=== PATIENT | female | born 1945 | race Caucasian/White ===

== ENCOUNTER 2017-05-11 10:12 | Inpatient (IN) | payer MEDICARE ==
[~2017-05-11 10:12] MED LIST: Midazolam 1 MG/ML 2 ML SDV ONE; Propofol 200 MG/20 ML SDV ONE; SODIUM CHLORIDE 0.9% IV SCH; TRANEXAMIC ACID IV SCH; fentaNYL 100 MCG/2 ML SDV ONE
[2017-05-11] MEDS ORDERED: Clindamycin Phosphate 900 MG in Sodium Chloride 0.9% 100 ML IV ONE (11:00)
[2017-05-11] MEDS ORDERED: Gabapentin 300 MG Cap PO ONE (11:00)
[2017-05-11] MEDS ORDERED: Lactated Ringers 1,000 ML IV SCH (11:00)
[2017-05-11] MEDS ORDERED: Scopolamine 1.5 MG Transdermal Patch TOP SCH (11:00)
[2017-05-11] MEDS ORDERED: Povidone-Iodine 10% Soln 118.25 ML Bottle ONE (11:32)
[2017-05-11] MEDS ORDERED: Gentamicin 40 MG/ML 2 ML Vial ONE (11:32)
[2017-05-11] MEDS ORDERED: Ketamine 500 MG/5 ML MDV IV ONE (12:15)
[2017-05-11] MEDS ORDERED: SODIUM CHLORIDE 0.9% IV SCH (12:15)
[2017-05-11] MEDS ORDERED: TRANEXAMIC ACID IV SCH (12:15)
[2017-05-11] MEDS ORDERED: Ropivacaine 49.25 ML, Ketorolac 30 MG, EPINEPHrine 0.5 MG, cloNIDine 80 MCG, Sodium Chl... INJECT ONE ×5 (12:15)
[2017-05-11] MEDS: Tranexamic Acid 600 MG in Sodium Chloride 0.9% 50 ML IV SCH ×2 (13:00→14:29)
[2017-05-11] MEDS ORDERED: Glycopyrrolate 0.2 MG/ML 5 ML MDV ONE (13:09)
[2017-05-11] MEDS ORDERED: Dexamethasone 4 MG/ML SDV ONE (13:09)
[2017-05-11] MEDS ORDERED: Rocuronium 50 MG/5 ML Vial ONE (13:09)
[2017-05-11] MEDS ORDERED: Propofol 200 MG/20 ML SDV ONE (13:09)
[2017-05-11] MEDS ORDERED: Neostigmine Methylsulfate 1 MG/ML 5 ML Syringe ONE (13:09)
[2017-05-11] MEDS ORDERED: Ondansetron 4 MG/2 ML SDV ONE (13:09)
[2017-05-11] MEDS ORDERED: fentaNYL 250 MCG/5 ML SDV ONE (13:10)
[2017-05-11] MEDS ORDERED: Lactated Ringers 1,000 ML ONE (13:44)
[2017-05-11] MEDS ORDERED: diphenhydrAMINE 50 MG/ML SDV IVPUSH PRN (14:25)
[2017-05-11] MEDS ORDERED: Morphine 2 MG/ML Syringe IVPUSH PRN (14:25)
[2017-05-11] MEDS ORDERED: Zolpidem 5 MG Tab PO PRN (14:25)
[2017-05-11] MEDS ORDERED: Ondansetron 4 MG/2 ML SDV IVPUSH PRN (14:25)
[2017-05-11] MEDS ORDERED: Bisacodyl 5 MG Tab PO PRN (14:25)
[2017-05-11] MEDS ORDERED: Ketorolac 30 MG/ML SDV IVPUSH PRN (14:25)
[2017-05-11] MEDS ORDERED: traMADol 50 MG Tab PO PRN (14:25)
[2017-05-11] MEDS ORDERED: Sennosides 8.6 MG Tab PO PRN (14:25)
[2017-05-11] MEDS ORDERED: Magnesium Hydroxide 400 MG/5 ML Susp 30 ML Cup PO PRN (14:25)
[2017-05-11] MEDS ORDERED: Naloxone 0.4 MG/ML SDV IVPUSH PRN (14:25)
[2017-05-11] MEDS ORDERED: Aluminum Hydroxide/Magnesium Hydroxide/Simethicone Susp 30 ML Cup PO PRN (14:25)
--- NOTE | 2017-05-11 14:38 | CR ---
Knee 1V or 2V Lt INDICATION: LEFT KNEE ARTHROPLASTY FINDINGS: Postoperative changes medial compartment hemiarthroplasty. Negative for postoperative purpo ses.
[2017-05-11] MEDS ORDERED: Diazepam 5 MG Tab PO PRN (15:22)
--- NOTE | 2017-05-11 20:24 | OR ---
DATE OF PROCEDURE: 05/11/2017 PREOPERATIVE DIAGNOSIS: Left knee primary osteoarthritis. POSTOPERATIVE DIAGNOSIS: Left knee primary osteoarthritis. PROCEDURE: Left knee medial compartmental arthroplasty. BEVEL GEAR GENERATOR OPERATOR: Eduarda Tejeda NP. Physician medicine assistant, Eduarda Tejeda NP, played an essential role in assisting in this case, helping to position the patient, retract structures as needed, as well as suturing and cutting sutures as indicated. Her presence improved patient's safety and decreased operative time. ANESTHESIA: Spinal anesthesia plus conscious sedation. FLUID: Lactated Ringer solution. ESTIMATED BLOOD LOSS: 100 mL. COMPLICATIONS: None. SPECIMENS: None. DISCHARGE DISPOSITION: Stable to PACU. HISTORY AND INDICATIONS FOR THE PROCEDURE: The patient was seen preoperatively in the clinic. She had failed nonoperative treatment. Preoperative imaging confirmed the above- mentioned diagnosis. Risks and benefits of the procedure were explained to the patient. DETAILS OF PROCEDURE: The patient was seen preoperatively in the preop holding area where the operative site was marked. She was brought to the operative suite by the anesthesia staff where spinal anesthesia was administered plus conscious sedation. The right lower extremity was in a stirrup. The left lower extremity had a well padded tourniquet placed and was in a U-shaped thigh hooker with extra padding. All extremities were found to be well padded. The left lower extremity was then prepped and draped in a sterile manner. Time-out was called identifying the correct patient, the correct procedure, the correct site, and the antibiotics had begun within appropriate period of time. The left lower extremity was then exsanguinated. Tourniquet was raised to 300 mmHg for 40 minutes, and then let down during cementing. A slightly oblique medial longitudinal incision was made just medial to the patella down to the tibial tubercle and carried down to the deep fascia. Bleeding during the case was controlled with Bovie electrocautery and an Aquamantys unit. I then did a medial parapatellar arthrotomy. I then removed the infrapatellar fat pad, and then exposed the medial proximal tibia with Bovie electrocautery. We then did a medial meniscectomy. I removed osteophytes in the box with an osteotome. I removed osteophytes off the distal femur using rongeurs. We then inserted a small spoon, which provided a good contour. I then used my tibial guide and attached this to the spoon. This was in line with the second metatarsal. I then pinned this in place, and then made my vertical side cut just medial to the insertion of the posterior cruciate ligament at the medial spine. I then made my horizontal cut. This measured a size B. We then removed more of the medial meniscus. We then drilled 1 cm anterior to an anterior-posterior line in line with the medial femoral condylar wall. I then used an awl, and then placed my intramedullary guide kerrie in this. I then used my femoral guide after marking the medial third of the condyle, and then linked this to the kerrie. After this had been accomplished, we then drilled 2 guide holes into the distal femur. I then inserted my distal cutting guide, and then did my distal femoral cut. After this had been accomplished, I inserted my 0 spigot, and then reamed the distal femur. After this had been accomplished, we inserted our femoral trial and tibial trial. This measured 3 in extension and I was able to get a #1 plate in extension, therefore, I put in another #2 spigot, and then reamed. Once I reinserted my components and inserted #3 trial, this provided excellent stability in flexion and extension with equal gapping. I then removed all my components. I then placed my posterior femur guide on, and then removed some small posterior osteophytes, and then removed excess bone on the distal anterior tibia. We then removed that component, and then using a spike, placed our tibial base plate with the , and then using a toothed saw, removed bone for the fin. I then removed the bone for the fin using a small hooked instrument. We then reinserted all of our components and inserted a 3 trial. This provided good range of motion with excellent stability in mid flexion, extension and flexion. We then removed all those components, and then copiously irrigated with saline. We then cemented our components in place and inserted a trial #4 in 50 degrees of extension while letting the cement harden. After the cement hardened, we looked for any excess cement, which was removed, copiously irrigated with saline. I then inserted a number #4 trial, which provided excellent range of motion and stability. We then inserted the #4 final 4-mm polyethylene implant. We then copiously irrigated with saline, and then closed with two #5 Ethibond followed by #1 STRATAFIX, followed by 3-0 STRATAFIX, followed by skin alex, followed by sterile dressing. The patient was then allowed to be transferred to the hospital bed and taken to the PACU in stable condition. Hernando Brunson DO /[id number]
[2017-05-11] MEDS ORDERED: Metoprolol Succinate 25 MG Tab.ER PO SCH (21:00)
[2017-05-11] MEDS: Docusate Sodium 100 MG Cap PO SCH (21:22)
[2017-05-11] MEDS: Metoprolol Tartrate 25 MG Tab PO SCH (21:22)
[2017-05-11] MEDS: Acetaminophen/oxyCODONE 325-5 MG Tab PO PRN (21:44)
[2017-05-12] MEDS ORDERED: Acetaminophen/Caffeine 500-65 MG Tab PO PRN (03:17)
[2017-05-12] MEDS: Metoprolol Tartrate 25 MG Tab PO SCH (07:59)
[2017-05-12 08:00] VITALS: BP 129/74
[2017-05-12] MEDS: Docusate Sodium 100 MG Cap PO SCH (08:00)
--- NOTE | 2017-05-12 08:10 | PCM.DCSUM1 ---
Discharge Summary - Discharge Data Discharge Date: 05/12/17 Discharge Disposition: Home, Self-Care 01 Condition: Good - Patient Summary/Data Operative Procedure(s) Performed: Left knee medial UKA Consults: Consultations 05/11/17 14:25 OT Evaluation and Treatment [CONS] Routine Please Evaluate and Treat. OT Reason for Consult: Strengthening This query below is only for informational purposes and is not editable. PT Evaluation and Treatment [CONS] Routine Please Evaluate and Treat. PT Reason for Consult: Strengthening This query below is only for informational purposes and is not editable. - Patient Instructions Diet: Usual Diet as Tolerated Activity: Apply Ice, As Tolerated Driving: Do Not Drive Showering/Bathing: May Shower, No Tub Bathing/Swimming Wound/Incision Care: Keep Operative Site/Wound Site Clean and Dry, Change Dressing Daily Notify Provider of: Fever, Increased Pain, Swelling and Redness, Drainage, Nausea and/or Vomiting - Discharge Plan Prescriptions/Med Rec: Acetaminophen/oxyCODONE [Percocet 325-5 MG] 1 tab PO Q6HR PRN #90 tablet PRN Reason: Pain Acetaminophen/oxyCODONE [Percocet 325-5 MG] 1 tab PO Q6HR PRN #90 tab PRN Reason: Pain Aspirin [Ecotrin] 325 mg PO DAILY #30 tab.ec Home Medications: Home Meds Acetaminophen [Tylenol Arthritis] 2 tab PO DAILY 04/01/16 [History] Aspirin [Halfprin] 2 tab PO BID 04/01/16 [History] Diclofenac Sodium/Misoprostol [Diclofenac-Misoprost 50-0.2 Tb] 1 tab PO BID 03/09 [History] traMADol [Ultram] 50 mg PO BID 04/01/16 [History] Acetaminophen/oxyCODONE [Percocet 325-5 MG] 1 tab PO Q6HR PRN #90 tab 05/11/17 [ Rx] Acetaminophen/oxyCODONE [Percocet 325-5 MG] 1 tab PO Q6HR PRN #90 tablet [Rx] Aspirin [Ecotrin] 325 mg PO DAILY #30 tab.ec 05/11/17 [Rx] Metoprolol Tartrate 25 mg PO BID 05/11/17 [History] Referrals: Eduarda Tejeda NP [Nurse Practitioner] - (3 week recheck) - Review of Systems General: Reports: No Symptoms HEENT: Reports: No Symptoms Pulmonary: Reports: No Symptoms Cardiovascular: Reports: No Symptoms Gastrointestinal: Reports: No Symptoms Genitourinary: Reports: No Symptoms Musculoskeletal: Reports: Leg Pain, Joint Pain Skin: Reports: No Symptoms Neurological: Reports: No Symptoms Psychiatric: Reports: No Symptoms - Patient Data Vitals - Most Recent: Last Vital Signs Temp 99.7 F 05/12/17 08:00 Pulse 80 05/12/17 08:00 Resp 18 05/12/17 08:00 BP 129/74 05/12/17 08:00 Pulse Ox 97 05/12/17 08:00 Weight - Most Recent: 128 lb 9 oz I&O - Last 24 hours: Intake & Output 05/11/17 05/12/17 05/12/17 22:59 06:59 14:59 Intake Total 840 59543 Output Total 275 Balance 565 16417 Lab Results - Last 24 hrs: Laboratory Results - last 24 hr 05/11/17 05/12/17 05/12/17 Range/Units 10:40 05:14 05:14 WBC 12.1 H (4.5-11.0) K/uL RBC 3.88 (3.30-5.50) M/uL Hgb 11.6 L (12.0-15.0) g/dL Hct 35.3 L (36.0-48.0) % MCV 91 (80-98) fL MCH 30 (27-31) pg MCHC 33 (32-36) % Plt Count 241 (150-400) K/uL Neut % (Auto) 71 H (36-66) % Lymph % (Auto) 19 L (24-44) % [place] % (Auto) 10 H (2-6) % Eos % (Auto) 0 L (2-4) % Baso % (Auto) 0 (0-1) % Sodium 134 L (140-148) mmol/L Potassium 4.0 (3.6-5.2) mmol/L Chloride 101 (100-108) mmol/L Carbon Dioxide 28 (21-32) mmol/L Anion Gap 9.0 (5.0-14.0) mmol/L BUN 17 D (7-18) mg/dL Creatinine 0.9 (0.6-1.0) mg/dL Est Cr Clr Drug Dosing 47.06 mL/min Estimated GFR (MDRD) > 60 (>60) Glucose 98 (74-106) mg/dL Calcium 8.2 L (8.5-10.1) mg/dL Total Bilirubin 0.3 (0.2-1.0) mg/dL AST 21 (15-37) U/L ALT 38 (12-78) U/L Alkaline Phosphatase 129 H (46-116) U/L Total Protein 6.0 L (6.4-8.2) g/dL Albumin 2.8 L (3.4-5.0) g/dL Globulin 3.2 (2.3-3.5) g/dL Albumin/Globulin Ratio 0.9 L (1.2-2.2) Blood Type O POSITIVE Gel Antibody Screen Negative Med Orders - Current: Current Medications Acetaminophen/Caffeine (Excedrin Tension Headache) 2 tab PO Q6HR PRN PRN Reason: Headache Al Hydroxide/Mg Hydroxide (Mag-Al Plus) 30 ml PO Q4H PRN PRN Reason: Constipation Aspirin (Ecotrin) 325 mg PO DAILY [facility] Last Admin: 05/12/17 07:59 Dose: 325 mg Bisacodyl (Dulcolax) 10 mg PO DAILY PRN PRN Reason: Constipation Diazepam (Valium.) 5 mg PO Q6H PRN PRN Reason: Spasms Diphenhydramine HCl (Benadryl) 25 mg IVPUSH Q4H PRN PRN Reason: Itching Docusate Sodium (Colace) 100 mg PO BID [facility] Last Admin: 05/12/17 08:00 Dose: 100 mg Lactated Ringer's (Ringers, Lactated) 1,000 mls @ 0 mls/hr IV ASDIRECTED [facility] PRN Reason: KVO Last Admin: 05/11/17 10:38 Dose: 25 mls/hr Ketorolac Tromethamine (Toradol) 15 mg IVPUSH Q8H PRN PRN Reason: Pain Stop: 05/16/17 14:25 Magnesium Hydroxide (Milk Of Magnesia) 30 ml PO BID PRN PRN Reason: Constipation Metoprolol Tartrate (Lopressor) 25 mg PO BID [facility] Last Admin: 05/12/17 07:59 Dose: 25 mg Morphine Sulfate (Morphine) 2 mg IVPUSH Q2H PRN PRN Reason: Pain Naloxone HCl (Narcan) 0.1 mg IVPUSH ONETIME PRN PRN Reason: Oversedation Ondansetron HCl (Zofran) 8 mg IVPUSH Q4H PRN PRN Reason: Nausea/Vomiting Oxycodone/Acetaminophen (Percocet 325-5 Mg) 2 tab PO Q4H PRN PRN Reason: Pain Last Admin: 05/11/17 21:44 Dose: 2 tab Scopolamine (Transderm-Scop) 1.5 mg TOP Q72H [facility]UTHIE Stop: 05/14/17 09:00 Last Admin: 05/11/17 10:35 Dose: 1.5 mg Senna (Senna) 8.6 mg PO BID PRN PRN Reason: Constipation Sodium Chloride (Saline Flush) 10 ml FLUSH DAILY RUTHIE Last Admin: 05/12/17 08:06 Dose: 10 ml Tramadol HCl (Ultram) 100 mg PO Q6H PRN PRN Reason: Pain Last Admin: 05/12/17 05:21 Dose: 100 mg Zolpidem Tartrate (Ambien) 5 mg PO BEDTIME PRN PRN Reason: Sleep Last Admin: 05/11/17 22:32 Dose: 5 mg Discontinued Medications Ropivacaine 49.25 ml/Ketorolac Tromethamine 30 mg/Epinephrine HCl 0.5 mg/ Clonidine HCl 80 mcg/ Sodium Chloride 48.45 ml 0 ml INJECT ONETIME ONE Stop: 05/11/17 12:16 Last Admin: 05/11/17 13:34 Dose: 50 ml Dexamethasone (Dexamethasone) Confirm Administered Dose 4 mg .ROUTE .STK-MED ONE Stop: 05/11/17 13:10 Diazepam (Valium) 5 mg IVPUSH Q6H PRN PRN Reason: Spasms Fentanyl (Sublimaze) Confirm Administered Dose 100 mcg .ROUTE .STK-MED ONE Stop: 05/11/17 09:21 Fentanyl (Sublimaze) Confirm Administered Dose 250 mcg .ROUTE .STK-MED ONE Stop: 05/11/17 13:11 Gabapentin (Neurontin) 300 mg PO ONETIME ONE Stop: 05/11/17 11:01 Last Admin: 05/11/17 10:35 Dose: 300 mg Gentamicin Sulfate (Gentamicin) Confirm Administered Dose 240 mg .ROUTE .STK- MED ONE Stop: 05/11/17 11:33 Last Admin: 05/11/17 13:19 Dose: 240 mg Glycopyrrolate (Robinul) Confirm Administered Dose 1 mg .ROUTE .STK-MED ONE Stop: 05/11/17 13:10 Clindamycin Phosphate 900 mg/ (Sodium Chloride) 106 mls @ 200 mls/hr IV ONETIME ONE Stop: 05/11/17 11:31 Last Admin: 05/11/17 12:30 Dose: 200 mls/hr Tranexamic Acid 630 mg/ Sodium (Chloride) 56.3 mls @ 225.2 mls/hr IV Q2H [facility] Stop: 05/11/17 14:29 Tranexamic Acid 600 mg/ Sodium (Chloride) 56 mls @ 224 mls/hr IV Q2H [facility] Stop: 05/11/17 14:44 Last Admin: 05/11/17 14:29 Dose: 224 mls/hr Lactated Ringer's (Ringers, Lactated) Confirm Administered Dose 1,000 mls @ as directed .ROUTE .STK-MED ONE Stop: 05/11/17 13:45 Clindamycin Phosphate 600 mg/ (Sodium Chloride) 54 mls @ 100 mls/hr IV Q6H [facility] Stop: 05/12/17 06:33 Last Admin: 05/12/17 05:16 Dose: 100 mls/hr Ketamine HCl (Ketalar) 25 mg IV ONETIME ONE Stop: 05/11/17 12:16 Last Admin: 05/11/17 15:39 Dose: Not Given Metoprolol Succinate (Toprol Xl) 25 mg PO BID [facility] Midazolam HCl (Versed 1 Mg/Ml) Confirm Administered Dose 2 mg .ROUTE .STK-MED ONE Stop: 05/11/17 09:21 Neostigmine Methylsulfate (Neostigmine) Confirm Administered Dose 5 mg .ROUTE .STK-MED ONE Stop: 05/11/17 13:10 Ondansetron HCl (Zofran) Confirm Administered Dose 4 mg .ROUTE .STK-MED ONE Stop: 05/11/17 13:10 Povidone Iodine (Betadine 10% Soln) Confirm Administered Dose 1 ml .ROUTE .STK- MED ONE Stop: 05/11/17 11:33 Last Admin: 05/11/17 13:18 Dose: 1 ml Propofol (Diprivan 20 Ml) Confirm Administered Dose 200 mg .ROUTE .STK-MED ONE Stop: 05/11/17 09:20 Propofol (Diprivan 20 Ml) Confirm Administered Dose 200 mg .ROUTE .STK-MED ONE Stop: 05/11/17 13:10 Rocuronium [place] (Zemuron) Confirm Administered Dose 50 mg .ROUTE .STK-MED ONE Stop: 05/11/17 13:10 Sumatriptan Succinate (Sumatriptan) 100 mg PO ONETIME ONE Stop: 05/12/17 03:23 Last Admin: 05/12/17 03:31 Dose: 100 mg - Exam General: Reports: Alert, Oriented HEENT: Reports: Pupils Equal, Pupils Reactive, EOMI, Mucous Membr. Moist/[place] Neck: Reports: Supple Lungs: Reports: Normal Respiratory Effort Extremities: Normal Inspection, Leg Pain, Limited Range of Motion Skin: Reports: Warm, Dry, Intact Wound/Incisions: Reports: Healing Well, Dressing Dry and Intact, No Drainage Neurological: Reports: No New Focal Deficit Psy/Mental Status: Reports: Alert, Normal Affect, Normal Mood Discharge Operative/Procedures - Procedures Performed Operations: left knee medial uka *Q Meaningful Use (DIS) - VTE *Q VTE Criteria *Q: - Stroke *Q Stroke Criteria *Q: - AMI *Q AMI Criteria *Q:
[2017-05-12] MEDS: Acetaminophen/oxyCODONE 325-5 MG Tab PO PRN (08:11)
[2017-05-12] MEDS ORDERED: Sodium Chloride 0.9% 10 ML Syringe FLUSH SCH (09:00)
[2017-05-12] MEDS ORDERED: Aspirin 325 MG Tab.EC PO SCH (09:00)
== END 2017-05-12 09:07 | disposition home or self-care (01) | DRG 470 ==
LOC: JP.SDS 10:12 → JP.SDSSCHI 10:12 → EDSTATUS 12:00 → JP.ICU 14:25
PROVIDERS: ADMIT Orthopaedic Surgery; ATTEND Orthopaedic Surgery
PROC: 0SRD0L9 Replacement of Left Knee Joint with Medial Unicondylar Synthetic Substitute, Cemented, Open Approach (ICD-10-PCS; principal; 2017-05-11)
DX: M17.12 Unilateral primary osteoarthritis, left knee (principal); Z96.651 Presence of right artificial knee joint; Z88.6 Allergy status to analgesic agent; Z88.5 Allergy status to narcotic agent; Z88.0 Allergy status to penicillin; Z88.2 Allergy status to sulfonamides; Z88.8 Allergy status to other drugs, medicaments and biological substances; Z79.82 Long term (current) use of aspirin
CPT/HCPCS: 36415; 73560-26-LT; 73560-LT; 80053; 85025; 86850; 86900; 86901; 94762; 97165-GO; A9270-GY; C1713; C1776; J0171; J0735; J1100; J1580; J1885; J2250; J2405; J2704; J2710; J2795; J3010; J7030; J7050; J7120; S0077

== ENCOUNTER → 2019-01-04 | Day surgery (SDC) | payer MEDICARE ==
[~2019-01-04] MED LIST changes: -Midazolam 1 MG/ML 2 ML SDV ONE; -Propofol 200 MG/20 ML SDV ONE; -SODIUM CHLORIDE 0.9% IV SCH; +Sodium Chloride 0.9% 10 ML Syringe FLUSH PRN; -TRANEXAMIC ACID IV SCH; -fentaNYL 100 MCG/2 ML SDV ONE
[2019-01-04 09:00] VITALS: BP 131/86
--- NOTE | 2019-01-05 08:12 | OR ---
DATE OF PROCEDURE: 01/04/2019 POSTOPERATIVE CARE: Postoperative care will be provided mainly at the [address] [place] [address] [facility] in conjunction with [facility]. PREOPERATIVE DIAGNOSIS: Cataract, right eye. POSTOPERATIVE DIAGNOSIS: Cataract, right eye. PROCEDURE: Phacoemulsification with intraocular lens placement, right eye. ANESTHESIA: Topical and intracameral. ESTIMATED BLOOD LOSS: Minimal. COMPLICATIONS: None. PATHOLOGY SPECIMENS: None. SURGICAL FINDINGS: None. INDICATION FOR PROCEDURE: The patient is a 73-year-old female with history of a visually significant cataract in the right eye, which interfered with activities of daily living. This consisted of a nuclear sclerosis cataract. Following careful discussion of the risks, benefits and alternatives to cataract extraction with intraocular lens placement including blindness and , the patient elected to proceed, and informed, written consent was obtained prior to the procedure. DESCRIPTION OF THE PROCEDURE: The patient was previously identified, and a mary ann placed above the right eye. All sources, including the patient, indicated that the right eye was the correct eye. The patient was subsequently taken to the operating room where standard monitors were applied. The patient was then prepped and draped in the usual sterile fashion for ophthalmic surgery. Attention was first directed at the 12 o'clock position where a paracentesis port was fashioned. Shugar solution followed by Viscoat was instilled into the eye. Attention was then directed to the 8:30 position where a triplanar incision was made in a near-clear manner using a keratome. A continuous capsulorrhexis was then made using a combination of the cystotome and Utrata forceps. Hydrodissection was achieved using a balanced salt solution, and the lens rotated nicely. Phacoemulsification was then done using a modified [id number] technique without complication. Phaco time was 7.32 CDE. The remaining cortex was removed using the irrigation/aspiration handpiece. Provisc was then instilled into the eye. A Technis lens, model KK1234, at 22.0 Diopters was then placed in the capsular bag using an [place] injector. The remaining viscoelastic was removed using the irrigation/aspiration forceps. All wounds were then checked and found to be watertight. The lid speculum and drapes were removed. Maxitrol ointment was placed in the patient's right eye, and the eye was shielded. The patient tolerated the procedure well. The patient was instructed to follow up tomorrow. All needle and sponge counts were correct at the end of the procedure. There were no surgical findings. Nimo Goldsmith MD /[id number]
== END ==
LOC: JP.SDS 06:22
PROVIDERS: ATTEND Ophthalmology
DX: H25.11 Age-related nuclear cataract, right eye (principal)
CPT/HCPCS: 66984; V2632

== ENCOUNTER 2019-01-18 06:17 | Day surgery (SDC) | payer MEDICARE ==
[2019-01-18] MEDS ORDERED: Sodium Chloride 0.9% 10 ML Syringe FLUSH PRN (07:00)
[2019-01-18 08:41] VITALS: BP 139/88; PULSE 82
--- NOTE | 2019-01-18 10:24 | OR ---
DATE OF PROCEDURE: 01/18/2019 POSTOPERATIVE CARE: Postoperative care will be provided mainly at the [address] [place] [address] [facility] in conjunction with [facility]. PREOPERATIVE DIAGNOSIS: Cataract, left eye. POSTOPERATIVE DIAGNOSIS: Cataract, left eye. PROCEDURE: Phacoemulsification with intraocular lens placement, left eye. ANESTHESIA: Topical and intracameral. ESTIMATED BLOOD LOSS: Minimal. COMPLICATIONS: None. PATHOLOGY SPECIMENS: None. SURGICAL FINDINGS: None. INDICATION FOR PROCEDURE: The patient is a 73-year-old female with history of a visually significant cataract in the left eye, which interfered with activities of daily living. This consisted of a nuclear sclerosis cataract. Following careful discussion of the risks, benefits and alternatives to cataract extraction with intraocular lens placement including blindness and , the patient elected to proceed, and informed, written consent was obtained prior to the procedure. DESCRIPTION OF THE PROCEDURE: The patient was previously identified, and a mary ann placed above the left eye. All sources, including the patient, indicated that the left eye was the correct eye. The patient was subsequently taken to the operating room where standard monitors were applied. The patient was then prepped and draped in the usual sterile fashion for ophthalmic surgery. Attention was first directed at the 12 o'clock position where a paracentesis port was fashioned. Shugar solution followed by Viscoat was instilled into the eye. Attention was then directed to the 8:30 position where a triplanar incision was made in a near-clear manner using a keratome. A continuous capsulorrhexis was then made using a combination of the cystotome and Utrata forceps. Hydrodissection was achieved using a balanced salt solution, and the lens rotated nicely. Phacoemulsification was then done using a modified [id number]-[id number] technique without complication. Phaco time was 9.62 CDE. The remaining cortex was removed using the irrigation/aspiration handpiece. Provisc was then instilled into the eye. A Technis lens, model [id number], at 22.0 Diopters was then placed in the capsular bag using an [place] injector. The remaining viscoelastic was removed using the irrigation/aspiration forceps. All wounds were then checked and found to be watertight. The lid speculum and drapes were removed. Maxitrol ointment was placed in the patient's left eye, and the eye was shielded. The patient tolerated the procedure well. The patient was instructed to follow up tomorrow. All needle and sponge counts were correct at the end of the procedure. There are no surgical findings. Nimo Goldsmith MD /[id number]
== END 2019-01-18 08:45 | disposition home or self-care (01) ==
LOC: JP.SDS 06:17
PROVIDERS: ATTEND Ophthalmology
DX: H25.12 Age-related nuclear cataract, left eye (principal); Z88.5 Allergy status to narcotic agent; Z88.0 Allergy status to penicillin; Z88.2 Allergy status to sulfonamides; Z88.8 Allergy status to other drugs, medicaments and biological substances; Z79.82 Long term (current) use of aspirin; Z79.899 Other long term (current) drug therapy
CPT/HCPCS: 66984; V2632